=== PATIENT | female | born 1955 | race Two or more races ===

== ENCOUNTER → 2020-05-07 | Outpatient (CLI) | payer OTHER ==
[~2020-05-07] MED LIST: ALEN70TA66 PO; ANAS1TAB49 PO; BECL10.62 INH; CIDE500T PO; CINN500C2 PO; LORA10TA75 PO; LOSA25TA25 PO; MONT10TA11 PO
[2020-05-07 17:12] LABS: ALBUMIN 3.5 g/dL (3.4-5.0); ANION GAP 5 mmol/L (5-15); CHLORIDE 107 mmol/L (98-107)
[2020-05-07 17:16] LABS: ALANINE AMINOTRANSFERASE 49 U/L (12-78); ALKALINE PHOSPHATASE 96 U/L (45-117); BILIRUBIN,TOTAL 0.2 mg/dL (0.2-1.0); CREATININE 1.22 mg/dL (0.55-1.02); TOTAL PROTEIN 8.6 g/dL (6.4-8.2)
== END | disposition home or self-care (01) ==
LOC: STAR 15:58
PROVIDERS: ATTEND Orthopaedic Surgery
DX: Z01.812 Encounter for preprocedural laboratory examination (principal); Z20.828 Contact with and (suspected) exposure to other viral communicable diseases; M25.519 Pain in unspecified shoulder; R00.0 Tachycardia, unspecified; R94.31 Abnormal electrocardiogram [ECG] [EKG]
CPT/HCPCS: 80053; 87635; 93005

== ENCOUNTER 2020-05-12 12:21 | Day surgery (SDC) | payer OTHER ==
[~2020-05-12] VITALS: Ht 161.3 cm; Wt 97.3 kg
[2020-05-12 12:56] VITALS: BP 143/102
[2020-05-12] MEDS ORDERED: LACTATED RINGERS 1,000 ML IV SCH (13:00)
[2020-05-12] MEDS ORDERED: CHLORHEXIDINE 15 ML UDC MM ONE (13:00)
[2020-05-12] MEDS ORDERED: CHLORHEXIDINE 15 ML UDC ONE (13:06)
[2020-05-12] MEDS ORDERED: LORA10TA75 PO (13:45)
[2020-05-12] MEDS ORDERED: CINN500C2 PO (13:45)
[2020-05-12] MEDS ORDERED: ANAS1TAB49 PO (13:45)
[2020-05-12] MEDS ORDERED: LOSA25TA25 PO (13:45)
[2020-05-12] MEDS ORDERED: CIDE500T PO (13:45)
[2020-05-12] MEDS ORDERED: BECL10.62 INH (13:45)
[2020-05-12] MEDS ORDERED: MONT10TA11 PO (13:45)
[2020-05-12] MEDS ORDERED: ALEN70TA66 PO (13:45)
[2020-05-12] MEDS ORDERED: EPINEPHRINE 1 MG/ML, 1ML ONE (14:29)
[2020-05-12] MEDS ORDERED: BUPIVACAINE/PF 0.5% ONE (14:29)
[2020-05-12] MEDS ORDERED: FENTANYL PF 100 MCG/2ML ONE ×2 (14:45→15:59)
[2020-05-12] MEDS ORDERED: MIDAZOLAM 1 MG/ML, 2ML ONE (14:49)
[2020-05-12] MEDS ORDERED: GLYCOPYRROLATE 0.2MG/1ML, 5ML ONE (14:50)
[2020-05-12] MEDS ORDERED: CEFAZOLIN 1,000 MG ONE (14:50)
[2020-05-12] MEDS ORDERED: PROPOFOL 10 MG/ML, 20ML ONE (14:50)
[2020-05-12] MEDS ORDERED: ONDANSETRON 2MG/ML, 2ML ONE (14:50)
[2020-05-12] MEDS ORDERED: NEOSTIGMINE 1 MG/ML, 10ML ONE (14:50)
[2020-05-12] MEDS ORDERED: DEXAMETHASONE 4 MG/ML, 1ML ONE (14:50)
[2020-05-12] MEDS ORDERED: SUCCINYLCHOLINE 20 MG/ML, 10ML ONE (14:50)
[2020-05-12] MEDS ORDERED: PHENYLEPHRINE 10 MG/ML ONE (14:58)
[2020-05-12] MEDS ORDERED: FENTANYL PF 100 MCG/2ML IV PRN (15:00)
[2020-05-12] MEDS ORDERED: MEPERIDINE/PF 25MG/0.5ML IVPush PRN (15:00)
[2020-05-12] MEDS ORDERED: KETOROLAC 30 MG/1 ML IVPush PRN (15:00)
[2020-05-12] MEDS ORDERED: HYDROcodone/APAP 7.5-325MG/15ML UDC PO PRN (15:00)
[2020-05-12] MEDS ORDERED: OXYcodone 5 MG/5 ML ORAL.SOL UDC PO PRN (15:00)
[2020-05-12] MEDS ORDERED: HYDROmorphone 1 MG/ML, 1ML INJ IVPush PRN (15:00)
[2020-05-12] MEDS ORDERED: PROMETHAZINE 25 MG/ML, 1ML IVPush PRN (15:00)
[2020-05-12] MEDS ORDERED: OXYcodone 5 MG/5 ML ORAL.SOL UDC ONE (16:47)
[2020-05-12] MEDS ORDERED: KETOROLAC 30 MG/1 ML ONE (16:47)
== END 2020-05-12 18:16 | disposition home or self-care (01) ==
LOC: OUT 12:21
PROVIDERS: ATTEND Orthopaedic Surgery
DX: T84.84XA Pain due to internal orthopedic prosthetic devices, implants and grafts, initial encounter (principal); I10 Essential (primary) hypertension; J45.909 Unspecified asthma, uncomplicated; I48.91 Unspecified atrial fibrillation; G47.33 Obstructive sleep apnea (adult) (pediatric); E11.9 Type 2 diabetes mellitus without complications; M85.80 Other specified disorders of bone density and structure, unspecified site; E78.5 Hyperlipidemia, unspecified; Z79.899 Other long term (current) drug therapy; Z88.0 Allergy status to penicillin; Z90.11 Acquired absence of right breast and nipple; Z92.3 Personal history of irradiation; Z83.3 Family history of diabetes mellitus; Z82.49 Family history of ischemic heart disease and other diseases of the circulatory system; Z81.8 Family history of other mental and behavioral disorders; Y83.8 Other surgical procedures as the cause of abnormal reaction of the patient, or of later complication, without mention of misadventure at the time of the procedure
CPT/HCPCS: 20680; 73060; 82962; C1762; J0171; J0330; J0690; J1100; J1885; J2250; J2370; J2405; J2704; J2710; J3010; J7120; 76000